=== PATIENT | male | born 2000 | race Caucasian/White ===

== ENCOUNTER 2024-05-04 16:28 | Inpatient (IN) | payer OTHER ==
[~2024-05-04] VITALS: Ht 175.3 cm; Wt 88.4 kg
[2024-05-04 17:00] VITALS: BP_SYST 132
[2024-05-04] MEDS ORDERED: HYDROmorphone 0.5 MG/0.5 ML SYRINGE IV PRN (17:30)
--- NOTE | 2024-05-04 17:49 | NUR ---
PT ADMITTED TO ROOM 327, ASSESSMENTS COMPLETE. IV TO RFA STARTED BY [facility]. PT IS A/OX4, STEADY GAIT. PAIN TO RLQ 8/10 ON ADMIT. IV DILAUDID GIVEN PER ORDERS. DR. ORO NOTIFIED OF PT ARRIVAL.
[2024-05-04] MEDS ORDERED: Acetaminophen 325 MG TAB PO PRN (18:30)
[2024-05-04] MEDS ORDERED: metroNIDAZOLE 100 ML IV SCH (18:30)
[2024-05-04] MEDS ORDERED: D5NS & 20 mEq KCl 1,000 ML IV SCH (18:30)
[2024-05-04] MEDS ORDERED: Ondansetron 4 MG/2 ML VIAL IV PRN (18:30)
[2024-05-04 19:13] VITALS: BP 110/57; PULSE 96; TEMP 103.1
[2024-05-04 19:33] VITALS: BP 110/57; PULSE 96; TEMP 103.1
--- NOTE | 2024-05-04 19:33 | NUR ---
Report from PCT of elevated temp of 103.1. Tylenol given per dr order. Due to this patients MEWs score 3. Notified charge nurse RYAN Giraldo.
[2024-05-04 19:50] VITALS: BP 110/62; PULSE 95; TEMP 103
[2024-05-04 21:09] VITALS: TEMP 101.1
[2024-05-04] MEDS ORDERED: Ibuprofen 600 MG TAB PO PRN (21:15)
--- NOTE | 2024-05-04 21:15 | NUR ---
Spoke with Dr Palacios-patients temp still 101.8. New orders received and initiated. Will monitor.
[2024-05-04 21:25] VITALS: BP_SYST 110
[2024-05-05] VITALS (12 sets, daily range): BP systolic 90–113; BP diastolic 53–73; PULSE 65–100; TEMP 97.9–101.6
--- NOTE | 2024-05-05 01:44 | NUR ---
Patient resting eyes closed. No s/s of pain or discomfort noted. Will monitor.
--- NOTE | 2024-05-05 04:57 | NUR ---
Patient resting with eyes closed. No s/s of pain or discomfort noted. Did have one temp of 103.1-tylenol and motrin has controlled well. IV to right AC with NS with 20KCL@125ml/hr infusing without difficulty. Denied pain/nausea/shortness of breath. VS remained stable. Will continue to monitor.
--- NOTE | 2024-05-05 06:30 | NUR ---
Patient requested IV to be held for shower. Disconnected at this time and wrapped. Instructed to call when done so we can reconnect. Verbalizes understanding. Call light in reach. Will monitor.
--- NOTE | 2024-05-05 06:40 | NUR ---
Pt in shower. No needs at this time.
[2024-05-05 06:42] LABS: BASO % 0.2 % (0.0-2.0); EOS % 0.2 % (0.0-4.0); GRAN # 9.5 K/mm3 (1.4-6.5); GRAN % 84.5 % (42.2-75.2); HEMATOCRIT 37.8 % (42.0-52.0); HEMOGLOBIN 12.4 g/dl (13.5-18.0); LYMPH # 0.8 K/mm3 (1.2-3.4); LYMPH % 7.4 % (20.0-51.0); MEAN CELL VOLUME 89 fl (80.0-100.0); MEAN CORPUSCULAR HEMOGLOBIN 29 pg (27-31); MEAN CORPUSCULAR HGB CONC 33 g/dl (33.0-37.0); MEAN PLATELET VOLUME 9.9 fl (7.4-10.4); MONO # 0.7 K/mm3 (0.1-0.6); MONO % 6.5 % (1.7-9.3); PLATELET COUNT 146 K/mm3 (130-400); RED BLOOD COUNT 4.26 M/mm3 (4.20-5.60); REDCELL DISTRIBUTION WIDTH-CV 12.2 % (11.5-14.5)
[2024-05-05 07:03] LABS: ALBUMIN 3.1 g/dL (3.5-5.0); BILIRUBIN,TOTAL 0.9 mg/dL (0.2-1.2); CALCIUM 8.9 mg/dL (8.4-10.2); CREATININE, serum 0.95 mg/dL (0.72-1.25); POTASSIUM 4.2 mEq/L (3.5-4.5); TOTAL PROTEIN 6.2 g/dl (6.2-8.1)
--- NOTE | 2024-05-05 07:18 | NUR ---
Pt reporting diarrhea. Pt wondering if they could get something for it, nothing currently on NOV. Told Pt this RN would attempt to call provider for order. No other needs.
--- NOTE | 2024-05-05 09:00 | NUR ---
Pt sitting up in bed. A&Ox4. VSS. S1S2. Clear lungs. ABD round, soft, tender in RLQ, audible bowel sounds. Palpable pulses in all extremities. Pt reports pain 7/10 in RLQ but declined medication. Ptrovided warm banket for comfort. No further needs. Call light in reach.
--- NOTE | 2024-05-05 11:17 | NUR ---
Municipal Clerk met with patient to discuss discharge planning. 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 Patient does not use any DME and is independent with ADLS. Patient listed his mom, Sarita (ph#[phone]) as emergency contact. Patient does not have DPOA-HC and does not want to complete one at this time. Discharge Plan; Home
--- NOTE | 2024-05-05 15:52 | NUR ---
Pt's temperature increased. Administered Tylenol to reduce temp.
--- NOTE | 2024-05-05 15:55 | NUR ---
Primary nurse notified this nurse of MEWS score and actions taken.
[2024-05-06] VITALS (8 sets, daily range): BP systolic 90–103; BP diastolic 49–64; PULSE 67–85; TEMP 98.2–100.4
--- NOTE | 2024-05-06 06:30 | NUR ---
Pt laying in bed. Denies needs at this time. Call light in reach.
[2024-05-06 06:53] LABS: BASO % 0.2 % (0.0-2.0); EOS % 0.5 % (0.0-4.0); GRAN # 6.6 K/mm3 (1.4-6.5); LYMPH # 1.1 K/mm3 (1.2-3.4); LYMPH % 12.8 % (20.0-51.0); MEAN CELL VOLUME 89 fl (80.0-100.0); MEAN CORPUSCULAR HEMOGLOBIN 29 pg (27-31); MEAN CORPUSCULAR HGB CONC 33 g/dl (33.0-37.0); MEAN PLATELET VOLUME 10.6 fl (7.4-10.4); MONO # 0.7 K/mm3 (0.1-0.6); MONO % 7.8 % (1.7-9.3); PLATELET COUNT 155 K/mm3 (130-400); RED BLOOD COUNT 3.74 M/mm3 (4.20-5.60); REDCELL DISTRIBUTION WIDTH-CV 12.4 % (11.5-14.5)
[2024-05-06 06:58] LABS: HEMATOCRIT 33.1 % (42.0-52.0)
[2024-05-06 07:00] LABS: CALCIUM 8.5 mg/dL (8.4-10.2); CREATININE, serum 0.88 mg/dL (0.72-1.25); POTASSIUM 3.9 mEq/L (3.5-4.5)
--- NOTE | 2024-05-06 10:00 | NUR ---
Pt sitting up in chair. A&Ox4. VSS. S1S2. Clear lungs on RA. ABd round, soft, non-tender with audible bowel sounds. Palpable pulses. INT in R AC patent. Pt denies pain. No further needs. Call light in reach.
[2024-05-06] MEDS ORDERED: AMOXICILLIN 8751 TAB PO (13:21)
--- NOTE | 2024-05-06 15:57 | NUR ---
Educated Pt on D/C instructions and information. Answered Pt questions. D/C'ed Pt's IV from R AC.Pressure bandage applied. Pt will get dressed then waiting for ride to come and pick him up.
--- NOTE | 2024-05-06 18:07 | NUR ---
Pt walked out to vehicle.
== END 2024-05-06 18:09 | disposition home or self-care (01) | DRG 373 ==
LOC: JCC 16:28 → SURG 17:20
PROVIDERS: ADMIT Surgery
DX: K35.33 Acute appendicitis with perforation, localized peritonitis, and gangrene, with abscess (principal); Z98.84 Bariatric surgery status
CPT/HCPCS: J1170; J1836; J1956; J2543; J3480

== ENCOUNTER 2024-05-08 12:02 | Inpatient (IN) | payer OTHER ==
[2024-05-08] VITALS (14 sets, daily range): BP systolic 107–135; BP diastolic 52–67; PULSE 59–70; TEMP 98–99.3
[~2024-05-08] VITALS: Ht 175.3 cm; Wt 92.2 kg
[~2024-05-08 12:02] MED LIST: AMOXICILLIN 8751 TAB PO
[2024-05-08] MEDS ORDERED: LR 1,000 ML IV SCH ×2 (13:45→16:00)
--- NOTE | 2024-05-08 13:45 | NUR ---
Pt arrived in room via EMS. Pt admission and assessment complete. Med REC complete and pharmacy verified. Pt is A&Ox4. VSS. S1S2. Clear lungs on RA. ABD flat, soft, non-tender with audible bowel sounds. Palpable pulses in all extremities with 5/5 strength. IV in L forearm, patent, LR running at 100 cc/hr. Pt denies pain at this time. Pt reports ABD pain last night and was told to get checke out at ER. Oriented Pt to room. Notified Dr Rosales of Pt's arrival. No further needs. Call light in reach.
[2024-05-08] MEDS ORDERED: Rocuronium 50 MG/5 ML Multi-Dose VIAL ONE (16:09)
[2024-05-08] MEDS ORDERED: Lidocaine PF 2% (20 MG/ML) 5 ML VIAL ONE (16:09)
[2024-05-08] MEDS ORDERED: Ondansetron 4 MG/2 ML VIAL ONE (16:09)
[2024-05-08] MEDS ORDERED: fentaNYL 50 MCG/ML 5 ML VIAL ONE (16:10)
[2024-05-08] MEDS ORDERED: fentaNYL 50 MCG/ML 1 ML SYRINGE/VIAL [PACU/SDC ONLY] IV PRN (16:15)
[2024-05-08] MEDS ORDERED: Meperidine 50 MG/ML 1 ML VIAL IV PRN (16:15)
[2024-05-08] MEDS ORDERED: hydrALAZINE 20 MG/ML 1 ML VIAL IV PRN (16:15)
[2024-05-08] MEDS ORDERED: HYDROmorphone 1 MG/1 ML SYRINGE [PACU/SDC ONLY] IV PRN (16:15)
[2024-05-08] MEDS ORDERED: droPERidol 2.5 MG/ML 2 ML VIAL IV PRN (16:15)
[2024-05-08] MEDS ORDERED: Ondansetron 4 MG/2 ML VIAL IV PRN ×2 (16:15)
--- NOTE | 2024-05-08 16:25 | NUR ---
Pt off floor for procedure.
[2024-05-08] MEDS ORDERED: Morphine 4 MG/ML VIAL IV PRN (18:30)
--- NOTE | 2024-05-08 19:49 | NUR ---
report received from navneet rodriguez. pt up from surgery at 1635. pt rating pain 5/10 but refusing PRN. pt alert and oriented. post op vital signs initiated. call light in reach. all needs met at this time.
--- NOTE | 2024-05-08 20:22 | NUR ---
shift assessment complete, see documentation. pt now rating abd pain 04/05, prn norco administered per orders. call light in reach. all needs met at this time.
--- NOTE | 2024-05-08 23:31 | NUR ---
pt reporting increased abd pain rated 9/10, prn morphine administered per orders.
[2024-05-09] VITALS (12 sets, daily range): BP systolic 99–149; BP diastolic 55–73; PULSE 56–96; TEMP 98–99.2
--- NOTE | 2024-05-09 03:45 | NUR ---
pt reporting 10/10 abd pain, prn norco administered per orders.
--- NOTE | 2024-05-09 07:49 | NUR ---
PT AWAKE AND WALKING UPON ENTERING ROOM. PT AMBULATED SLOWLY WITH A STEADY GAIT. YANELIS DRAIN IN PLACE WITH BRIGHT RED DRAINAGE. PT C/O 11/06 PAIN. OFFERED PRN PAIN MEDS. PT REFUSED AT THIS TIME. DENIES N/V AND SOA. ALL QUESTIONS ANSWERED AT THIS TIME. CALL LIGHT WITHIN REACH.
--- NOTE | 2024-05-09 10:10 | NUR ---
SW met with patient to complete initial assessment for discharge planning. Patient is a readmission for complications following surgery last week. 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 Patient uses [facility] for medical care and pharmacy. Patient lists his mother Sarita Yang ([phone]) as his emergency contact. He denies having a DPOA completed. Patient states his commander will pick him up at discharge. He states he is scheduled to deploy to [facility] on 05/24 and is still cleared to go at this time. No discharge needs identified. Discharge plan: Home
--- NOTE | 2024-05-09 14:20 | NUR ---
D: Internet Media Planner stopped by room on rounds. A: Pt was resting and content sitting in his chair. Pt has no needs right now. P: Internet Media Planner informed pt that if he needed anything from the medical office manager area to let his nurse know. Internet Media Planner will follow up as needed.
--- NOTE | 2024-05-09 18:21 | NUR ---
PT C/O 05/06 PAIN AND REQUESTS PAIN MEDS. PRN NORCO GIVEN. PT UP AND AMBULATING TO CHAIR. DENIES ANY OTHER NEEDS. CALL LIGHT WITHIN REACH.
--- NOTE | 2024-05-09 18:52 | NUR ---
report received from navneet rodriguez. pt ambulating in room independently without issue. pt reporting PRN medication given on previous shift is relieving pain. abd pain rated 3/10. call light in reach. all needs met at this time.
--- NOTE | 2024-05-09 19:44 | NUR ---
shift assessment complete, see documentation. pt reporting 3/10 abd pain but states it is bearable. call light in reach. all needs met at this time.
[2024-05-10] VITALS (10 sets, daily range): BP systolic 105–124; BP diastolic 47–68; PULSE 68–79; TEMP 98.3–98.9
[2024-05-10 07:17] LABS: HEMOGLOBIN 11.6 g/dl (13.5-18.0); MEAN CELL VOLUME 88 fl (80.0-100.0); MEAN CORPUSCULAR HEMOGLOBIN 29 pg (27-31); MEAN CORPUSCULAR HGB CONC 33 g/dl (33.0-37.0); PLATELET COUNT 334 K/mm3 (130-400); RED BLOOD COUNT 3.98 M/mm3 (4.20-5.60); REDCELL DISTRIBUTION WIDTH-CV 12.8 % (11.5-14.5)
[2024-05-10 07:21] LABS: HEMATOCRIT 35.2 % (42.0-52.0)
[2024-05-10 07:49] LABS: BAND 2 % (0-10); NEUTROPHILS 75 % (42.0-75.2)
[2024-05-10 07:50] LABS: LYMPHOCYTE 19 % (20.0-51.0); PLATELET ESTIMATE NORMAL (NORMAL)
--- NOTE | 2024-05-10 08:19 | NUR ---
PT RESTING IN BED. EATING BREAKFAST. PT DENIES PAIN OR NEEDS ATH THIS TIME. DRAIN TO COMPRESSION WITH SM AMT OF SEROSANGUENOUS DRAIANGE. PT DENIES PAIN OR NEEDS AT TIME OF ASSESSMENT.
[2024-05-10] MEDS ORDERED: metroNIDAZOLE 250 MG TAB PO SCH (12:30)
[2024-05-10 15:55] LABS: CLOSTRIDIUM DIFF A/B NEG
--- NOTE | 2024-05-10 19:00 | NUR ---
report received from bobo rodriguez. pt sitting in recliner watching tv. pt denies pain. call light in reach. all needs met at this time.
--- NOTE | 2024-05-10 20:05 | NUR ---
shift assessment complete, see documentation. pt tolerated hs med well. pt denies pain. pt reporting continued diarrhea, cdiff sample negative. call light in reach. all needs met at this time.
[2024-05-10] MEDS ORDERED: Ciprofloxacin 500 MG TAB PO SCH (21:00)
[2024-05-11] VITALS (8 sets, daily range): BP systolic 105–129; BP diastolic 58–70; PULSE 58–73; TEMP 98.1–98.6
[2024-05-11] MEDS ORDERED: CIPRO 500MG TA500 MG PO (06:11)
[2024-05-11] MEDS ORDERED: FLAGYL500 MG PO (06:12)
--- NOTE | 2024-05-11 07:26 | NUR ---
Pt doing well during bedside shift report. No complaints or needs verbalized. Dr Rosales has been in to see pt, plan for discharge today
--- NOTE | 2024-05-11 10:09 | NUR ---
Pt continues to do well, tolerated breakfast with no complaints. Pt did appear to be in some pain with movement. Discussed pain medication with him, PRN pain medication was given. Rewviewed discharge instructions with pt and int removed. Informed pt to notify nursing when his ride arrives. NO questions at this time
--- NOTE | 2024-05-11 11:53 | NUR ---
Pt continues to do okay, waiting on his ride at this time. No needs verbalized
--- NOTE | 2024-05-11 12:52 | NUR ---
Pt escorted out at this time via wheelchair
== END 2024-05-11 12:45 | disposition home or self-care (01) | DRG 399 ==
LOC: SURG 12:02
PROVIDERS: ADMIT Surgery
PROC: 0DTJ4ZZ Resection of Appendix, Percutaneous Endoscopic Approach (ICD-10-PCS; principal; 2024-05-08 16:30)
PROC: 0W9G4ZZ Drainage of Peritoneal Cavity, Percutaneous Endoscopic Approach (ICD-10-PCS; 2024-05-08 16:30)
DX: K35.33 Acute appendicitis with perforation, localized peritonitis, and gangrene, with abscess (principal); R19.7 Diarrhea, unspecified
CPT/HCPCS: J0690; J2270; J2405; J2543; J2704; J3010; J7120